=== PATIENT | female | born 1995 | race Caucasian/White ===

== ENCOUNTER 2018-08-16 11:22 | Emergency (ER) | payer SELFPAY ==
[2018-08-16] MEDS ORDERED: IPRATROPIUM/ALBUTEROL 0.5-2.5 MG/3 ML AMPUL NEB ONE (12:48)
[2018-08-16] MEDS ORDERED: DEXAMETHASONE SOD PHOS INJ 10 MG/1 ML VIAL IM ONE (12:48)
--- NOTE | 2018-08-16 12:54 | ER Document Report ---
HPI - HPI Patient complains to provider of: cough and wheezing Pain Level: 3 Context: 22-year-old female presents emergency department with chief complaint of cough and wheezing for the past week. She has been seen here previously and in urgent care a couple times and states she was diagnosed with asthma by an urgent care provider. She had previously been given Symbicort and an albuterol inhaler without a spacer. She presents today with 1 week of worsening cough and congestion. She denies fevers or chills, earache, sore throat, dizziness or lightheadedness, vision changes, rhinorrhea, chest pain, nausea or vomiting, urinary symptoms. - REPRODUCTIVE Reproductive: DENIES: : <REID ALCANTAR - Last Filed: 08/16/18 13:41> <EB WEST - Last Filed: 08/16/18 17:42> - HPI Time Seen by Provider: 08/16/18 12:39 Past Medical History - Social History Smoking Status: Unknown if Ever Smoked Family History: CAD, DM, Hypertension Pulmonary Medical History: Reports: Hx Asthma - Immunizations Immunizations up to date: Yes Hx Diphtheria, Pertussis, Tetanus Vaccination: Yes - September 2013 Hx Pneumococcal Vaccination: 12/09/13 <REID ALCANTAR - Last Filed: 08/16/18 13:41> Vertical Provider Document - CONSTITUTIONAL Notes: PHYSICAL EXAMINATION: Reviewed vital signs and charting by RN GENERAL: Alert, interacts well. No acute distress. HEAD: Normocephalic, atraumatic. EYES: Pupils equal, round. Extraocular movements intact. ENT: Oral mucosa moist, tongue midline. NECK: Full range of motion. Supple. Trachea midline. LUNGS: Diffuse inspiratory and expiratory wheezes in all ha[place]on, witnessed productive cough HEART: Regular rhythm and tachycardic. No murmur ABDOMEN: soft, non-tender. No distention. Bowel sounds present EXTREMITIES: Moves all 4 extremities spontaneously. No edema, No cyanosis. PSYCH: Normal affect, normal mood. SKIN: Warm, dry, normal turgor. No rashes or lesions noted. - INFECTION CONTROL TRAVEL OUTSIDE OF THE [place] IN LAST 30 DAYS: No <REID ALCANTAR - Last Filed: 08/16/18 13:41> Course - Re-evaluation Re-evalutation: 08/16/18 12:53 Well-appearing with diffuse inspiratory and expiratory wheezes. I ordered 2 rounds of DuoNeb and dexamethasone 10 mg IM 1 time. Patient states she has been on Symbicort in the past and I am okay giving her prescription as she states she has asthma. No fevers or any focal crackles but patient is tachycardic so I will order a chest x-ray. 08/16/18 13:41 X-ray negative for any infiltrate, consolidation, pneumothorax or any acute process. Patient responded well to the DuoNeb's. Upon reevaluation had very very mild end expiratory wheezing in the right lower lobe. Patient states she is feeling much better and does not need another breathing treatment. She is stable for discharge at this time. She is mildly tachycardic but this could be secondary to the breathing treatments. - Vital Signs Vital signs: Temp Pulse Resp BP Pulse Ox 98.3 F 108 H 26 H 140/88 H 96 08/16/18 11:35 08/16/18 11:35 08/16/18 11:35 08/16/18 11:35 08/16/18 11:35 <REID ALCANTAR - Last Filed: 08/16/18 13:41> - Vital Signs Vital signs: Temp Pulse Resp BP Pulse Ox 98.4 F 101 H 26 H 123/78 98 08/16/18 13:58 08/16/18 13:58 08/16/18 11:35 08/16/18 13:58 08/16/18 13:58 <EB WEST - Last Filed: 08/16/18 17:42> Discharge <REID ALCANTAR - Last Filed: 08/16/18 13:41> <EB WEST - Last Filed: 08/16/18 17:42> - Discharge Clinical Impression: Wheezing, Cough Condition: Good Disposition: HOME, SELF-CARE Additional Instructions: You were seen for an asthma exacerbation. Your symptoms improved with treatment here in the emergency department. However, it is very important that you return to the emergency department immediately if you began to have worsening difficulty breathing that does not respond to your normal home nebulizers. You are given a steroid shot called dexamethasone and will not require any further treatment. Please also try to establish a primary care physician to manage your asthma. As we talked about I would very comfortable giving you a prescription for the Symbicort but this is something that I cannot keep refilling in the emergency department and will require a primary care provider. you should also return to emergency department if you develop fever greater than 101, persistent cough, persistent vomiting, pass out, or any other symptoms that are concerning to you. Prescriptions: Budesonide/Formoterol Fumarate [Symbicort Hfa 80-4.5 Mcg Inhaler 6.9 gm] 2 puff IH BID #1 inhaler Forms: Return to Work Referrals: SANDEE MAHAN MD [ACTIVE STAFF] - Follow up as needed
--- NOTE | 2018-08-16 13:39 | RADIOLOGY REPORT (SQ) ---
EXAM DESCRIPTION: CHEST 2 VIEWS COMPLETED DATE/TIME: 08/16/2018 1:30 pm REASON FOR STUDY: cough COMPARISON: 08/20/2015 EXAM PARAMETERS: NUMBER OF VIEWS: two views TECHNIQUE: Digital Frontal and Lateral radiographic views of the chest acquired. RADIATION DOSE: NA LIMITATIONS: none FINDINGS: LUNGS AND PLEURA: No opacities, masses or pneumothorax. No pleural effusion. MEDIASTINUM AND HILAR STRUCTURES: No masses or contour abnormalities. HEART AND VASCULAR STRUCTURES: Heart normal size. No evidence for failure. BONES: No acute findings. HARDWARE: None in the chest. OTHER: No other significant finding. IMPRESSION: No acute abnormality of the lungs. TECHNICAL DOCUMENTATION: JOB ID: [id number] [employer]- All Rights Reserved Reading location - IP/workstation name: [email or web address]
[2018-08-16 14:09] VITALS: BP 123/78
== END 2018-08-16 14:03 | disposition home or self-care (01) ==
LOC: ER 11:22
DX: J45.909 Unspecified asthma, uncomplicated (principal); R05 Cough; R00.0 Tachycardia, unspecified
CPT/HCPCS: 94640; 99283; 96372; 71046; J1100; J7620

== ENCOUNTER 2018-10-27 13:16 | Emergency (ER) | payer SELFPAY ==
--- NOTE | 2018-10-27 14:49 | ER Document Report ---
ED Medical Screen (RME) - General Chief Complaint: Vaginal Bleeding Stated Complaint: VAGINAL BLEEDING Time Seen by Provider: 10/27/18 14:37 Notes: Patient is a 22-year-old female with a history of asthma who presents to the emergency department with a chief complaint of vaginal bleeding. Patient states she does have the Mirena which has been in place for 5 years. Patient states last night after having sexual intercourse she did develop some pelvic cramping and vaginal bleeding. Patient states that is not necessarily abnormal for her to have spotting after sex but she is having much more bleeding. Patient states she is gone through 1 full tampon today. Patient denies blood clots. Patient states that the sexual intercourse was painful for her. Patient denies vaginal discharge prior to the bleeding. Patient denies urinary symptoms. TRAVEL OUTSIDE OF THE [place] IN LAST 30 DAYS: No - Related Data Allergies/Adverse Reactions: No Known Allergies Allergy (Verified 08/16/18 11:25) Past Medical History - Social History Frequency of alcohol use: Occasional Drug Abuse: None Pulmonary Medical History: Reports: Hx Asthma Renal/ Medical History: Denies: Hx Peritoneal Dialysis - Immunizations Immunizations up to date: Yes Hx Diphtheria, Pertussis, Tetanus Vaccination: Yes - September 2013 Physical Exam - Vital signs Vitals: Temp Pulse Resp BP Pulse Ox 98.4 F 92 15 128/90 H 99 10/27/18 13:20 10/27/18 13:20 10/27/18 13:20 10/27/18 13:20 10/27/18 13:20 - Abdominal Inspection: Normal Distension: No distension Bowel sounds: Normal Tenderness: Nontender Organomegaly: No organomegaly Course - Re-evaluation Re-evalutation: 10/27/18 14:49 I have greeted and performed a rapid initial assessment of this patient. A comprehensive ED assessment and evaluation of the patient, analysis of test results and completion of the medical decision making process will be conducted by additional ED providers. - Vital Signs Vital signs: Temp Pulse Resp BP Pulse Ox 98.4 F 92 15 128/90 H 99 10/27/18 13:20 10/27/18 13:20 10/27/18 13:20 10/27/18 13:20 10/27/18 13:20
--- NOTE | 2018-10-27 15:11 | ER Document Report ---
HPI - HPI Patient complains to provider of: vaginal bleeding, dyspareunia, lower abdominal pain Time Seen by Provider: 10/27/18 14:37 Onset: Yesterday Onset/Duration: Sudden, Waxing and waning Quality of pain: Achy, Cramping Severity: Mild Pain Level: 1 Context: 22 yr old female patient, with the listed pmh, here for intermittent crampy lower abdominal pain and some light vaginal bleeding since yesterday after intercourse with her boyfriend. denies doing anything out of the ordinary. denies any trauma or injury. states usually she doesn't have a period with he IUD which she has had in for nearly 5yrs and is due to get it out this month and has f/u in a week or two for this. she states when they had vaginal intercourse last night it was painful to her for the first time and felt different and she usually doesn't experience that and then she noticed she was having some mild, not heavy, vaginal bleeding, so she came in for eval to make sure her IUD wasn't dislodged and to further investigate her sx. no hx of this before. denies heavy bleeding, clots, acute blood loss sx, or notably passing the IUD. No abdominal surgeries. No history of ovarian cysts, fibroids, endometriosis, or renal stones. Normal bowel movements. No UTI symptoms. No URI symptoms. No recent antibiotics or steroids. No history of diabetes. No vaginal discharge/complaints/lesions or concerns for STDs and does not want prophylactic tx for gc/chlam. No ripping or tearing sensation. Hasn't taken anything for her symptoms and doesn't want anything for pain. No excessive NSAID use, Tylenol use, or EtOH. No prior history of gallbladder disease, pancreatitis, ulcers, GI bleed, GERD, IBS, Crohn's, or UC. no change in color or caliber or stool. no blood thinners. no hx of bleeding or clotting disorders. denies bleeding from anywhere else. denies any forms of assault. no fall or trauma. no other associated sx. Relieved by: Remaining still Similar symptoms previously: No Recently seen / treated by doctor: No - ROS Systems Reviewed and Negative: Yes All other systems reviewed and negative - to include 10 systems, unless mentioned in the hpi - REPRODUCTIVE Reproductive: DENIES: : - DERM Skin Color: Normal Past Medical History - General Information source: Patient - Social History Smoking Status: Current Every Day Smoker Frequency of alcohol use: Occasional Drug Abuse: None Lives with: Spouse/Significant other Family History: CAD, DM, Hypertension Patient has suicidal ideation: No Patient has homicidal ideation: No Pulmonary Medical History: Reports: Hx Asthma Endocrine Medical History: Reports: None Renal/ Medical History: Denies: Hx Peritoneal Dialysis Past Surgical History: Reports: None - Immunizations Immunizations up to date: Yes Hx Diphtheria, Pertussis, Tetanus Vaccination: Yes - September 2013 Hx Pneumococcal Vaccination: 12/09/13 Vertical Provider Document - CONSTITUTIONAL Notes: >>>> PHYSICAL_EXAM: GENERAL_APPEARANCE: well_nourished, alert, cooperative, no_acute_distress, no_obvious_discomfort. Pleasant, young white female, smiling, speaking in full sentences, in no sign of pain or resp distress, easily sitting up, boyfriend at bedside VITALS: reviewed, see vital signs table. HEAD: normocephalic, atraumatic. no ho signs. no raccoon eyes. EYES: PERRL, EOMI, (-)scleral icterus. NOSE: no_nasal_discharge. MOUTH: (-)decreased moisture. THROAT: no_tonsilar_inflammation/hypertrophy/exudate NECK: supple, no_neck_tenderness, full rom. full strength. no meningeal signs. BACK: no midline_back_tenderness. no step offs or deformities CHEST_WALL: no_chest_tenderness. LUNGS: no_wheezing, (-)accessory muscle use, good air exchange bilateral. HEART: normal_rate, normal_rhythm, ABDOMEN: normal_BS, soft, abdomen-diffuse, non-tender, (-)guarding, (- )rebound, no distension or peritoneal signs. neg murphys. neg mcburneys. no cva tenderness. neg heel strike. neg obturator. neg psoas. neg rovsign. GENITALS: no_ulcers_or_lesions on the genitals, no_lacerations on the genitals, PELVIC: (-)tender uterus, left_and_right adnexa non-tender, (-)CMT, a mild amt of blood in the vault and oozing from the os. no clots. no bright red blood, heavy or pulsatile flow. no IUD visualized in vault; however, there appear to be two strings coming from the os on the left side approx 1.5-2in long which would be consistent with her hx of an IUD, this was best visualized after sterile obgyn cotton swab q-tips were used to gently soak up the blood over the area to allow for better visualization, (-)discharge, no_tenderness, no cervicitis, normal os, pt consented to exam. exam without incident. ed nurse at bedside during entire exam as communicable disease specialist. RECTAL: deferred EXTREMITIES: strength 5/5 in all_extremities, good pulses in all_extremities, no_edema, no_swelling\tenderness. full rom. normal gait. 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 brisk cap refill. SKIN: warm, dry, good_color, no_rash. no grossly visible overlying skin changes to suggest trauma NEURO: motor_intact, sensory_intact. cranial nerves 2-12 intact, cerebellar fxn intact MENTAL_STATUS: normal_affect, speech_clear, oriented_X_3, responds_appropriately to questions. - INFECTION CONTROL TRAVEL OUTSIDE OF THE [place] IN LAST 30 DAYS: No Course - Re-evaluation Re-evalutation: pt here for vaginal spotting/mild bleeding and intermittent lower abd cramping, x 1 day and pain after vaginal intercourse last night. also concern her IUD may be dislodged. labs unremarkable other than bv. gc and chlam pending. she didn't want prophylactic tx. advised will call with any abnormal results that require change in plan of care. advised it appeared both of her IUD strings were protruding through the os on pelvic exam however there was some blood in the vault and coming from the os so exam limited; however her transvag pelvic dop pler US and KUB were negative per rad and reviewed by myself to include no visualization of the IUD. so she may have spontaneously expelled it as it had been in there for around 5yrs and was due to be changed out. advised pt of this and that she needed to make sure she used other forms for control until she f/u with obgyn unless she was trying to get which she states she isn't. serial abd exams remain benign. she is well appearing. tolerating po. denies acute blood loss sx. will dc with flagyl. advised to f/u with obgyn in 1- 2 days. return for any worsening symptoms. vss. well appearing. satting well on ra. neurononfocal. pt understands and agrees to plan. On reexam, pt remained stable. nontoxic. well appearing. pain controlled as she didn't want anything here for pain. tolerating po. requesting to go home. serial abd exams remain benign case discussed with ER Attending, Dr. michelle ma, who directed and agrees with plan of care and advised no further workup indicated at this time and pt is stable for dc home with close f/u with pcp/specialist. Documentation achieved through voice recording which my lead to some occasional accidental typographical errors. Extensive efforts have been made to proof read documentation to make sure these are the least as possible. Category Date Time Status Pelvic Setup (ED) NOW Care 10/27/18 15:08 Completed KUB/ABDOMEN (SINGLE VIEW) [RAD] Stat Exams 10/27/18 18:27 Completed U/S NON OB PEL W/DOPPLER [US] Stat Exams 10/27/18 14:42 Completed ADD ON [ADD ON TESTING BLD IN LAB] [CHEM] Stat Lab 10/27/18 15:02 Completed BASIC METABOLIC PANEL [CHEM] Stat Lab 10/27/18 15:02 Completed CBC WITH DIFF [HEME] Stat Lab 10/27/18 15:02 Completed CHLAM RICH PCR URINE INHOUSE [MO] Stat Lab 10/27/18 15:02 Completed HCG QUALITATIVE, URINE [URIN] Stat Lab 10/27/18 15:02 Completed LIVER FUNCTION PANEL [CHEM] Stat Lab 10/27/18 15:02 Completed URINALYSIS [URIN] Stat Lab 10/27/18 15:02 Completed WET MOUNT [MO] Stat Lab 10/27/18 16:40 Completed - Vital Signs Vital signs: Temp Pulse Resp BP Pulse Ox 98.4 F 92 15 128/90 H 99 10/27/18 13:20 10/27/18 13:20 10/27/18 13:20 10/27/18 13:20 10/27/18 13:20 11/01/18 16:17 Temp Pulse Pulse Resp BP BP Pulse Ox 10/27/18 19:30 98.1 F 85 18 123/83 100 10/27/18 13:20 98.4 F 92 15 128/90 H 99 - Laboratory Result Diagrams: 10/27/18 15:02 10/27/18 15:02 Laboratory results interpreted by me: 11/01/18 16:17 Labs- Entire Visit 10/27/18 10/27/18 10/27/18 15:02 15:02 15:02 WBC 10.4 RBC 4.45 Hgb 13.9 Hct 41.0 MCV 92 MCH 31.2 MCHC 33.9 RDW 13.4 Plt Count 241 Seg Neutrophils % 67.5 Lymphocytes % 25.7 Monocytes % 5.2 Eosinophils % 1.0 Basophils % 0.6 Absolute Neutrophils 7.0 Absolute Lymphocytes 2.7 Absolute Monocytes 0.5 Absolute Eosinophils 0.1 Absolute Basophils 0.1 Sodium 140.9 Potassium 4.6 Chloride 104 Carbon Dioxide 28 Anion Gap 9 BUN 15 Creatinine 0.60 Est GFR ( Amer) > 60 Est GFR (Non-Af Amer) > 60 Glucose 88 Calcium 10.0 Total Bilirubin Direct Bilirubin Neonat Total Bilirubin Neonat Direct Bilirubin Neonat Indirect Bili AST ALT Alkaline Phosphatase Total Protein Albumin Urine Color YELLOW Urine Appearance SLIGHTLY-CLOUDY Urine pH 6.0 Ur Specific [place] 1.018 Urine Protein NEGATIVE Urine Glucose (UA) NEGATIVE Urine Ketones NEGATIVE Urine Blood MODERATE H Urine Nitrite NEGATIVE Urine Bilirubin NEGATIVE Urine Urobilinogen NEGATIVE Ur Leukocyte Esterase NEGATIVE Urine WBC (Auto) 1 Urine RBC (Auto) 3 Squamous Epi Cells Auto 1 Urine Mucus (Auto) RARE Urine Ascorbic Acid NEGATIVE Urine HCG, Qual NEGATIVE Bacteria (Wet Prep) Trichomonas (Wet Prep) Vaginal WBC Vaginal RBC Vaginal Yeast Chlamydia DNA (PCR) N.gonorrhoeae DNA (PCR) 10/27/18 10/27/18 10/27/18 15:02 15:02 16:40 WBC RBC Hgb Hct MCV MCH MCHC RDW Plt Count Seg Neutrophils % Lymphocytes % Monocytes % Eosinophils % Basophils % Absolute Neutrophils Absolute Lymphocytes Absolute Monocytes Absolute Eosinophils Absolute Basophils Sodium Potassium Chloride Carbon Dioxide Anion Gap BUN Creatinine Est GFR ( Amer) Est GFR (Non-Af Amer) Glucose Calcium Total Bilirubin 0.4 Direct Bilirubin 0.1 Neonat Total Bilirubin Not Reportable Neonat Direct Bilirubin Not Reportable Neonat Indirect Bili Not Reportable AST 21 ALT 14 Alkaline Phosphatase 76 Total Protein 7.6 Albumin 4.7 Urine Color Urine Appearance Urine pH Ur Specific [place] Urine Protein Urine Glucose (UA) Urine Ketones Urine Blood Urine Nitrite Urine Bilirubin Urine Urobilinogen Ur Leukocyte Esterase Urine WBC (Auto) Urine RBC (Auto) Squamous Epi Cells Auto Urine Mucus (Auto) Urine Ascorbic Acid Urine HCG, Qual Bacteria (Wet Prep) 4+ BACTERIA SEEN Trichomonas (Wet Prep) NO TRICHOMONAS SEEN Vaginal WBC 1+ WBCS SEEN Vaginal RBC 4+ RBCS SEEN Vaginal Yeast NO YEAST SEEN Chlamydia DNA (PCR) NOT DETECTED N.gonorrhoeae DNA (PCR) NOT DETECTED - Diagnostic Test Radiology reviewed: Image reviewed, Reports reviewed Radiology results interpreted by me: 11/01/18 16:18 Pelvis Ultrasound 10/27/18 14:42 IMPRESSION: Age-appropriate exam. No IUD identified. KUB X-Ray 10/27/18 18:27 IMPRESSION: NO RADIOGRAPHIC EVIDENCE FOR ACUTE ABDOMINAL DISEASE. No IUD identified. Discharge - Discharge Clinical Impression: Dysfunctional uterine bleeding, Dyspareunia, History of use of contraceptive intrauterine device (IUD), Bacterial vaginosis Condition: Good Disposition: HOME, SELF-CARE Instructions: Dysfunctional Uterine Bleeding ([facility]) Additional Instructions: Follow-up with the obgyn in 1 to 2 days. Return for any worsening symptoms. your IUD was not visualized on your abdominal xray or transvaginal ultrasound today or in the vaginal vault on pelvic exam. you need to use other methods of control as discussed. tylenol or motrin as needed for any pain. take the medication as prescribed. Prescriptions: Metronidazole [Flagyl 500 mg Tablet] 500 mg PO BID #14 tablet Referrals: MEKHI WHALEY MD [ACTIVE STAFF] - Follow up in 3-5 days
[2018-10-27 15:24] LABS: APPEARANCE,URINE SLIGHTLY-CLOUDY; BILIRUBIN,URINE NEGATIVE (NEGATIVE); COLOR,URINE YELLOW; GLUCOSE, URINE NEGATIVE (NEGATIVE); KETONES,URINE NEGATIVE (NEGATIVE); LEUKOCYTE ESTERASE,URINE NEGATIVE (NEGATIVE); NITRITE,URINE NEGATIVE (NEGATIVE); PROTEIN,URINE NEGATIVE (NEGATIVE); URINE SPECIFIC GRAVITY 1.018; UROBILINOGEN,URINE NEGATIVE mg/dL (<2.0)
[2018-10-27 15:25] LABS: ABSOLUTE BASOPHILS # (AUTO) 0.1 10^3/uL (0.0-0.2); ABSOLUTE EOSINOPHILS # (AUTO) 0.1 10^3/uL (0.0-0.6); ABSOLUTE LYMPHOCYTES (AUTO) 2.7 10^3/uL (0.5-4.7); ABSOLUTE MONOCYTES (AUTO) 0.5 10^3/uL (0.1-1.4); BASOPHILS % (AUTO) 0.6 % (0-2); HEMOGLOBIN 13.9 g/dL (12.0-15.5); LYMPHOCYTES % (AUTO) 25.7 % (13-45); MEAN CORPUSCULAR HEMOGLOBIN 31.2 pg (27.0-33.4); MEAN CORPUSCULAR HGB CONC 33.9 g/dL (32.0-36.0); MEAN CORPUSCULAR VOLUME 92 fl (80-97); MONOCYTES % (AUTO) 5.2 % (3-13); PLATELET COUNT 241 10^3/uL (150-450); RED BLOOD COUNT 4.45 10^6/uL (3.72-5.28); RED CELL DISTRIBUTION WIDTH 13.4 % (11.5-14.0); SEGMENTED NEUTROPHILS % (AUTO) 67.5 % (42-78); TOTAL CELLS COUNTED % (AUTO) 100 %; WHITE BLOOD COUNT 10.4 10^3/uL (4.0-10.5)
[2018-10-27 15:35] LABS: ALBUMIN 4.7 g/dL (3.5-5.0); ALKALINE PHOSPHATASE 76 U/L (38-126); ANION GAP 9 (5-19); ASPARTATE AMINO TRANSFERASE 21 U/L (14-36); BILIRUBIN,DIRECT 0.1 mg/dL (0.0-0.4); BILIRUBIN,TOTAL 0.4 mg/dL (0.2-1.3); BLOOD UREA NITROGEN 15 mg/dL (7-20); CARBON DIOXIDE 28 mmol/L (22-30); CHLORIDE 104 mmol/L (98-107); GLUCOSE 88 mg/dL (75-110); POTASSIUM 4.6 mmol/L (3.6-5.0); TOTAL PROTEIN 7.6 g/dL (6.3-8.2)
[2018-10-27 16:57] LABS: BACTERIA (WET MOUNT) 4+ BACTERIA SEEN; RBCS (WET MOUNT) 4+ RBCS SEEN; T.VAGINALIS (WET MOUNT) NO TRICHOMONAS SEEN; WBCS (WET MOUNT) 1+ WBCS SEEN; YEAST (WET MOUNT) NO YEAST SEEN
--- NOTE | 2018-10-27 18:05 | RADIOLOGY REPORT (SQ) ---
EXAM DESCRIPTION: U/S NON OB PEL W/DOPPLER COMPLETED DATE/TIME: 10/27/2018 5:39 pm REASON FOR STUDY: vaginal bleeding, hx. mirena, pelvic cramping COMPARISON: None. TECHNIQUE: Dynamic and static grayscale images acquired of the pelvis via transabdominal approach an d recorded on PACS. Additional selected color Doppler and spectral images recorded. LIMITATIONS: None. FINDINGS: UTERUS: Contour normal. No mass. ENDOMETRIAL STRIPE: No focal or generalized thickening. No masses. CERVIX: No nabothian cysts. RIGHT OVARY AND DOPPLER: Normal size. No worrisome masses. Normal arterial vascular flow without evid ence for torsion. LEFT OVARY AND DOPPLER: Normal size. No worrisome masses. Normal arterial vascular flow without evide nce for torsion. FREE FLUID: None noted. OTHER: No other significant finding. MEASUREMENTS: UTERUS: 5.8 x 3.9 x 3.8 cm ENDOMETRIAL STRIPE: 3 mm RIGHT OVARY: 3.4 x 2.3 x 2.2 cm LEFT OVARY: 1.9 x 2.2 x 1.7 cm IMPRESSION: Age-appropriate exam. No IUD identified. TECHNICAL DOCUMENTATION: JOB ID: [id number] 2010 [employer]- All Rights Reserved Reading location - IP/workstation name: [email or web address]
[2018-10-27 18:21] LABS: CHLAM PCR NOT DETECTED (NOT DETECT)
--- NOTE | 2018-10-27 18:55 | RADIOLOGY REPORT (SQ) ---
EXAM DESCRIPTION: KUB/ABDOMEN (SINGLE VIEW) COMPLETED DATE/TIME: 10/27/2018 6:43 pm REASON FOR STUDY: IUD not visualized on US COMPARISON: None. NUMBER OF VIEWS: One view. TECHNIQUE: Supine radiographic image of the abdomen acquired. LIMITATIONS: None. FINDINGS: BOWEL GAS PATTERN: Non-obstructive bowel gas pattern. No dilated loops. CALCIFICATIONS: No suspicious calcifications. SOFT TISSUES: No gross mass or suggestion of organomegaly. HARDWARE: None in the abdomen. BONES: No acute fracture. No worrisome bone lesions. OTHER: No other significant finding. IMPRESSION: NO RADIOGRAPHIC EVIDENCE FOR ACUTE ABDOMINAL DISEASE. No IUD identified. TECHNICAL DOCUMENTATION: JOB ID: [id number] 2010 [employer]- All Rights Reserved Reading location - IP/workstation name: [email or web address]
[2018-10-27 19:39] VITALS: BP 123/83
== END 2018-10-27 19:39 | disposition home or self-care (01) ==
LOC: ER 13:16
DX: N76.0 Acute vaginitis (principal); B96.89 Other specified bacterial agents as the cause of diseases classified elsewhere; N93.8 Other specified abnormal uterine and vaginal bleeding; N94.10 Unspecified dyspareunia; R10.30 Lower abdominal pain, unspecified; F17.200 Nicotine dependence, unspecified, uncomplicated; J45.909 Unspecified asthma, uncomplicated
CPT/HCPCS: 36415; 74018; 76856; 80048; 80076; 81001; 81025; 85025; 87210; 87491; 87591; 93976; 99284

== ENCOUNTER 2019-02-26 10:13 | Emergency (ER) | payer SELFPAY ==
[2019-02-26] MEDS ORDERED: IPRATROPIUM/ALBUTEROL 0.5-2.5 MG/3 ML AMPUL NEB ONE (10:53)
--- NOTE | 2019-02-26 10:54 | ER Document Report ---
HPI - HPI Time Seen by Provider: 02/26/19 10:50 Pain Level: 4 Notes: 23-year-old female patient with history of asthma pneumonia presenting with cough x1 month. Patient is also a months . Patient reports productive cough that is keeping her up at night. She reports some nasal congestion as well but denies sore throat, fevers or chills. - REPRODUCTIVE LMP: Dec 29, 2018 Reproductive: REPORTS: : Past Medical History - General Information source: Patient - Social History Smoking Status: Never Smoker Chew tobacco use (# tins/day): No Frequency of alcohol use: None Drug Abuse: None Family History: CAD, DM, Hypertension Patient has suicidal ideation: No Patient has homicidal ideation: No Pulmonary Medical History: Reports: Hx Asthma Renal/ Medical History: Denies: Hx Peritoneal Dialysis - Immunizations Immunizations up to date: Yes Hx Diphtheria, Pertussis, Tetanus Vaccination: Yes - September 2013 Hx Pneumococcal Vaccination: 12/09/13 Vertical Provider Document - CONSTITUTIONAL Notes: PHYSICAL EXAMINATION: GENERAL: Well-appearing, well-nourished and in no acute distress. HEAD: Atraumatic, normocephalic. EYES: Pupils equal round extraocular movements intact, conjunctiva are normal. ENT: Nares patent with clear rhinorrhea, oropharynx mildly erythematous but without exudates or tonsillar swelling. NECK: Normal range of motion, no cervical lymphadenopathy. LUNGS: No respiratory distress, lung sounds clear and equal bilaterally. Musculoskeletal: Normal range of motion NEUROLOGICAL: Normal speech, normal gait. PSYCH: Normal mood, normal affect. SKIN: Warm, Dry, normal turgor, no rashes or lesions noted. - INFECTION CONTROL TRAVEL OUTSIDE OF THE [place] IN LAST 30 DAYS: No Course - Re-evaluation Re-evalutation: Chest X-Ray 02/26/19 10:53 IMPRESSION: No focal consolidation or other evidence of acute cardiopulmonary process. Chest x-ray negative, will treat patient conservatively for viral upper respiratory infection. Patient agreeable to this plan. ED return precautions discussed. The patient's emergency department workup and current diagnosis were explained to the patient and or family. Follow-up instructions were provided. Medications if prescribed were discussed. Instructions for when to return to the emergency department including specific worrisome symptoms were discussed with the patient and/or family. - Vital Signs Vital signs: Temp Pulse Resp BP Pulse Ox 99.4 F 86 20 116/68 97 02/26/19 10:50 02/26/19 10:50 02/26/19 10:50 02/26/19 10:50 02/26/19 10:50 Discharge - Discharge Clinical Impression: Upper respiratory infection Qualifiers: URI type: unspecified viral URI Qualified Code(s): J06.9 - Acute upper respiratory infection, unspecified Condition: Stable Disposition: HOME, SELF-CARE Additional Instructions: The chest x-ray that we did today was negative which means you do not have any pneumonia. You do have an upper respiratory infection. Unfortunately there are not many medications he can safely take during . I would purchase [id number] guaifenesin and wviq-nwg-wxbautz acetaminophen. Take the antibiotic that I have prescribed. If this is viral the antibiotic will not not help but you have been having the cough for greater than 30 days so I think it is worth a try. Follow-up with [facility]. Prescriptions: Albuterol Sulfate [Albuterol Sulfate Hfa] 8.5 gm IH Q4H #1 [email or web address] Amoxicillin 1 tab PO TID #30 tab Forms: Return to Work
--- NOTE | 2019-02-26 12:13 | RADIOLOGY REPORT (SQ) ---
EXAM DESCRIPTION: CHEST 2 VIEWS COMPLETED DATE/TIME: 02/26/2019 12:00 pm REASON FOR STUDY: cough x1 month, hx of oneumonia COMPARISON: 08/16/2018 EXAM PARAMETERS: NUMBER OF VIEWS: two views TECHNIQUE: Digital Frontal and Lateral radiographic views of the chest acquired. RADIATION DOSE: NA LIMITATIONS: none FINDINGS: LUNGS AND PLEURA: No opacities, masses or pneumothorax. No pleural effusion. MEDIASTINUM AND HILAR STRUCTURES: No masses or contour abnormalities. HEART AND VASCULAR STRUCTURES: Heart normal size. No evidence for failure. BONES: No acute findings. HARDWARE: None in the chest. OTHER: No other significant finding. IMPRESSION: No focal consolidation or other evidence of acute cardiopulmonary process. TECHNICAL DOCUMENTATION: JOB ID: [id number] [employer]- All Rights Reserved Reading location - IP/workstation name: [email or web address]
[2019-02-26 12:45] VITALS: BP 98/64
== END 2019-02-26 12:49 | disposition home or self-care (01) ==
LOC: ER 10:13
DX: O99.511 Diseases of the respiratory system complicating pregnancy, first trimester (principal); J06.9 Acute upper respiratory infection, unspecified; B97.89 Other viral agents as the cause of diseases classified elsewhere; J45.909 Unspecified asthma, uncomplicated; J34.89 Other specified disorders of nose and nasal sinuses; O26.891 Other specified pregnancy related conditions, first trimester; R05 Cough; Z3A.08 8 weeks gestation of pregnancy
CPT/HCPCS: 94640; 99283; 71046; J7620

== ENCOUNTER 2019-10-14 22:04 | Inpatient (IN) | payer MEDICAID ==
[2019-10-14] MEDS ORDERED: RINGERS SOLUTION,LACTATED 1,000 ML IV ONE (23:08)
[2019-10-14] MEDS ORDERED: RINGERS SOLUTION,LACTATED 1,000 ML IV PRN (23:08)
[2019-10-14] MEDS ORDERED: OXYTOCIN 10 UNIT/ML VIAL ONE (23:09)
[2019-10-14] MEDS ORDERED: OXYTOCIN/0.9 % SODIUM CHLORIDE 30 UNIT/500 ML RTUINJ ONE (23:10)
[2019-10-14] MEDS ORDERED: MISOPROSTOL 0.2 MG TABLET ONE (23:10)
[2019-10-14] MEDS ORDERED: LIDOCAINE 1% INJ-PF (10 MG/ML) 30 ML SDV ONE (23:10)
[2019-10-14 23:16] LABS: APPEARANCE,URINE SLIGHTLY-CLOUDY; BILIRUBIN,URINE NEGATIVE (NEGATIVE); COLOR,URINE YELLOW; GLUCOSE, URINE NEGATIVE (NEGATIVE); KETONES,URINE NEGATIVE (NEGATIVE); LEUKOCYTE ESTERASE,URINE TRACE (NEGATIVE); NITRITE,URINE NEGATIVE (NEGATIVE); PROTEIN,URINE 30 mg/dL (NEGATIVE); URINE SPECIFIC GRAVITY 1.027
[2019-10-14 23:40] LABS: URINE AMPHETAMINES SCREEN NEGATIVE; URINE BARBITURATES SCREEN NEGATIVE; URINE BENZODIAZEPINES SCREEN NEGATIVE; URINE COCAINE SCREEN NEGATIVE; URINE MARIJUANA (THC) SCREEN NEGATIVE; URINE METHADONE SCREEN NEGATIVE; URINE PHENCYCLIDINE SCREEN NEGATIVE
[2019-10-14] MEDS ORDERED: ROPIVACAINE HCL 0.2% INJ/PF (2 MG/ML) 20 ML SDV ONE (23:49)
[2019-10-14] MEDS ORDERED: EPHEDRINE SULFATE INJ 50 MG/1 ML AMPULE ONE (23:49)
[2019-10-14] MEDS ORDERED: FENTANYL/BUPIVACAINE/NS/PF 300 MCG/150 ML RTUINJ EPI ONE (23:49)
[2019-10-14 23:59] LABS: HEMATOCRIT 37.8 % (36.0-47.0); HEMOGLOBIN 13.1 g/dL (12.0-15.5); MEAN CORPUSCULAR HEMOGLOBIN 31.2 pg (27.0-33.4); MEAN CORPUSCULAR HGB CONC 34.5 g/dL (32.0-36.0); MEAN CORPUSCULAR VOLUME 90 fl (80-97); PLATELET COUNT 225 10^3/uL (150-450); RED BLOOD COUNT 4.18 10^6/uL (3.72-5.28); WHITE BLOOD COUNT 22.1 10^3/uL (4.0-10.5)
[2019-10-15 00:11] LABS: ABSOLUTE LYMPHOCYTES# (MANUAL) 2.2 10^3/uL (0.5-4.7); ABSOLUTE MONOCYTES # (MANUAL) 1.3 10^3/uL (0.1-1.4); BASOPHILS % (MANUAL) 0 % (0-2); EOSINOPHILS % (MANUAL) 1 % (0-6); LYMPHOCYTES % (MANUAL) 10 % (13-45); MONOCYTES % (MANUAL) 6 % (3-13); SEGMENTED NEUTROPHILS % (MAN) 83 % (42-78); TOTAL CELLS COUNTED 100
[2019-10-15 00:12] LABS: ANISOCYTOSIS SLIGHT; OVALOCYTES SLIGHT; PLATELET COMMENT ADEQUATE; POIKILOCYTOSIS SLIGHT; TOXIC GRANULATION 1+
--- NOTE | 2019-10-15 01:03 | Admission Physical ---
Datetime Report Generated by CPN: 10/15/2019 01:03 CURRENT ADMISSION Chief Complaint: Uterine Contractions Admit Impression : Term, Intrauterine ; Active Labor Admit Plan: Admit to Unit; Initiate Labor Protocol ALLERGIES Medication Allergies: No Known Allergies (10/14/2019) Food Allergies: Peanuts OBSTETRICAL HISTORY EDC: 10/12/2019 00:00 : 2 Para: 1 Gestational Diabetes: No Rh Sensitization: No Incompetent Cervix: No GAMALIEL: No Infertility: No Uterine Anomaly: No IUGR: No Hx Previous C/S: No Macrosomia: No Hx Loss/Stillborn: No PIH: No Hx : No Placenta Previa/Abruption: No Depression/PP Depression: Yes PTL/PROM: No Post Hemorrhage: No PHYSICAL EXAM General: Normal HEENT: Normal Neurologic: Normal Thyroid: Normal Heart: Normal Lungs: Normal Breast: Normal Back: Normal Abdomen: Normal Genitourinary Exam: Normal Extremities: Normal DTRs: Normal Pelvic Type: Adequate Vital Signs: Reviewed VAGINAL EXAM Dilatation: 3 Effacement: 100 Station: -1 Contraction Comments: regular contractions MEMBRANES Pooling: Positive Membranes: Ruptured Amniotic Fluid Color: Clear FETUS A EGA: 40.3 Monitoring: External US FHR- Baseline: 125 Variability: Moderate 6-25bpm Accelerations: 15X15 Decelerations: None FHR Category: Category I Presentation: Vertex Admit Comment: at 40.3 wks EGA who presented in active labor, SROM while in OB triage, clear -Admit to LDR -NPO and IVFs: LR one liter bolus followed by 125cc/hr continuously -CEFM and toco -GBS negative -Hx of one prior , anticipate -desires Epidural for pain management PLANS FOR LABOR AND DELIVERY Pain Management: Medications; Epidural INFORMED CONSENT Informed Consent Obtained: Vaginal Delivery; Section Delivery; Vacuum/Forceps Assist; Risks, Benefits and Alternatives Discussed Signature: with User ID: [email or web address] : with User ID: [email or web address]
[2019-10-15] MEDS ORDERED: ZOLPIDEM TARTRATE 5 MG TABLET PO PRN (01:47)
[2019-10-15] MEDS ORDERED: MAGNESIUM HYDROXIDE SUSP 30 ML UDCUP PO PRN (01:47)
[2019-10-15] MEDS ORDERED: DIPHENHYDRAMINE HCL 25 MG CAPSULE PO PRN (01:47)
[2019-10-15] MEDS ORDERED: ACETAMINOPHEN 650 MG SUPP.RECT PR PRN (01:47)
[2019-10-15] MEDS ORDERED: DIPH/PERTUSS(ACELL)/TETANUS VAC/PF 0.5 ML SYR (>=10YO) IM PRN (01:47)
[2019-10-15] MEDS ORDERED: OXYTOCIN/0.9 % SODIUM CHLORIDE 30 UNIT/500 ML RTUINJ IV PRN (01:47)
[2019-10-15] MEDS ORDERED: MEASLES,MUMPS&RUBELLA VACC/PF 0.5 ML VIAL SUBCUT PRN (01:47)
[2019-10-15] MEDS ORDERED: PROMETHAZINE HCL 25 MG SUPP.RECT PR PRN (01:47)
[2019-10-15] MEDS ORDERED: PROMETHAZINE HCL INJ 25 MG/1 ML VIAL IV PRN (01:47)
[2019-10-15] MEDS ORDERED: BENZOCAINE/MENTHOL AEROSOL SPRAY 56 ML TOP PRN (01:47)
[2019-10-15] MEDS ORDERED: DIBUCAINE 1% OINTMENT 28 GM TP PRN (01:47)
[2019-10-15] MEDS ORDERED: ACETAMINOPHEN WITH CODEINE #3 TABLET PO PRN (01:47)
[2019-10-15] MEDS ORDERED: PSEUDOEPHEDRINE HCL 30 MG TABLET PO PRN (01:47)
[2019-10-15] MEDS ORDERED: NA PHOS,M-B/NA PHOS,DI-BA (ADULT) 133 ML ENEMA PR PRN (01:47)
[2019-10-15] MEDS ORDERED: PROMETHAZINE HCL 25 MG TABLET PO PRN (01:47)
[2019-10-15] MEDS ORDERED: GLYCERIN/WITCH HAZEL LEAF 1 EACH MED..WIPE TP PRN (01:47)
[2019-10-15] MEDS ORDERED: IBUPROFEN 800 MG TABLET PO SCH ×2 (02:00)
--- NOTE | 2019-10-15 03:37 | Delivery Summary ---
Del Sum A-C Datetime Report Generated by CPN: 10/15/2019 03:37 DELIVERY PERSONNEL DELIVERY PERSONNEL: [id number] Delivery Doctor:: Lala Flynn MD Labor and Delivery Nurse:: Isaura Interiano RN Silo Painter:: Bre Mcleod RN Nursery Nurse:: Marianne Jhaveri RN MSN Corn Lab Technician/NATURAL RESOURCES MANAGER: Jess Solis, ST MATERNAL INFORMATION Delivery Anesthesia: Epidural Medications After Delivery: Pitocin 30 Units in 500ml NS/D5W Estimated Blood Loss (ml): 200 Maternal Complications: None Provider Comments: Called to patients room as she was feeling urge to push and completely dilated. She pushed for approximately 10 minutes and delivered a viable male . Prior to delivery, decelerations of heart rate noted and position changes, Oxygen and fluids were given. Large amount of meconium stained fluid noted after delivery of the head. Shoulders and rest of the body followed easily. Nose and mouth suctioned. IOnfant vigorous. Cord clamping done and infant placed skin to skin with mother. Nursery in attendance and they continued caring for . Both mother and infant stable. LABOR SUMMARY EDC: 10/12/2019 00:00 No. Babies in Womb: 1 Attempted: No Labor Anesthesia: Epidural LABOR INFORMATION Reason for Induction: Not Applicable Onset of Labor: 10/14/2019 23:00 Complete Dilatation: 10/15/2019 01:13 Oxytocin: N/A Group B Beta Strep: neg Steroids Given: None Reason Steroids Not Administered: Not Applicable MEMBRANES Membranes Rupture Method: Spontaneous Rupture of Membranes: 10/14/2019 23:00 Length of Rupture (hr): 2.53 Amniotic Fluid Color: Moderate Meconium Amniotic Fluid Amount: Large STAGES OF LABOR Stage 1 hr: 2 Stage 1 min: 13 Stage 2 hr: 0 Stage 2 min: 19 Stage 3 hr: 0 Stage 3 min: 7 Total Time in Labor hr: 2 Total Time in Labor min: 39 VAGINAL DELIVERY Episiotomy: None Other Laceration: Bilateral labial lacerations: repeaired with 3-0 chromic running Laceration Repair: Yes Laceration Repair Note: wtih 3-0 chromic, running Sponge Count Correct: Yes; Vaginal Sweep Performed Sharps Count Correct: Yes CSECTION DELIVERY Primary Indication: N/A Secondary Indication: N/A CSection Incidence: N/A Labor: N/A Elective: N/A CSection Incision: N/A Uterine Closure: N/A BABY A INFORMATION Delivery Date/Time: 10/15/2019 01:32 Method of Delivery: Vaginal Nurse Controlled Delivery: No Born in Route : No : N/A Forceps: N/A Vacuum Extraction: N/A Shoulder Dystocia : No PRESENTATION/POSITION BABY A Presentation: Cephalic Cephalic Presentation: Vertex Vertex Position: Right Occipital Anterior PLACENTA INFORMATION BABY A Placenta Delivery Time : 10/15/2019 01:39 Placenta Method of Delivery: Spontaneous Placenta Status: Delivered SCORES BABY A Heart Rate 1 min: >100 bpm Resp Effort 1 min: Good Cry Reflex Irritability 1 min: Cough or Sneeze or Pulls Away Muscle Tone 1 min: Active Motion Color 1 min: Blue/Pale Resuscitation Effort 1 min: Tactile Stimulation SCORE 1 MIN: 8 Heart Rate 5 min: >100 bpm Resp Effort 5 min: Good Cry Reflex Irritability 5 min: Cough or Sneeze or Pulls Away Muscle Tone 5 min: Active Motion Color 5 min: Body [place], Extremities Blue Resuscitation Effort 5 min: Tactile Stimulation SCORE 5 MIN: 9 INFORMATION BABY A Gestational Age at Delivery: 40.3 Gestational Status: Full Term- 39- 40.6 Weeks Outcome : Liveborn Condition : Stable Sex: Male IDENTIFICATION BABY A Verification Date/Time: 10/15/2019 02:20 ID Band Number: [id number] Mother's Name Verified: Yes RN Verifying : S. Mcleod RN E. Loslek RN WEIGHT/LENGTH BABY A Birthweight (gm): 3277 Weight (lb): 7 Weight (oz): 4 Infant Length (in): 20.00 Infant Length (cm): 50.80 CORD INFORMATION BABY A No. Cord Vessels: 3 Nuchal Cord : N/A Cord Blood Taken: Yes-For Eval (Mom's Blood Type - or O+) Infant Suction: Mouth; Nose ASSESSMENT BABY A Infant Complications: None Physical Findings at Delivery: Within Normal Limits Respirations: Appears Normal Skin to Skin: Yes Transferred To: Remains with Mother SIGNATURES Signature: with User ID: [email or web address] : with User ID: [email or web address]
[2019-10-15] MEDS: IBUPROFEN 800 MG TABLET PO SCH ×3 (05:59→22:18)
[2019-10-15] MEDS: SENNOSIDES/DOCUSATE 8.6-50 MG 1 EACH TABLET PO SCH (09:20)
[2019-10-15] MEDS: PRENATAL VITAMIN W DHA CAPSULE PO SCH (09:20)
[2019-10-15] MEDS: DOCUSATE SODIUM 100 MG CAPSULE PO SCH ×2 (09:20→18:13)
[2019-10-15] MEDS: FERROUS SULFATE 325 MG TABLET PO SCH ×2 (09:20→18:14)
[2019-10-15] MEDS: VALACYCLOVIR HCL 500 MG TABLET PO SCH (09:20)
[2019-10-15] MEDS: ACETAMINOPHEN WITH CODEINE #3 TABLET PO PRN (09:25)
[2019-10-15] MEDS: FAMOTIDINE 20 MG TABLET PO SCH (09:26)
--- NOTE | 2019-10-15 16:28 | PDOC PROGRESS REPORT ---
Subjective-OB Progress Note for:: 10/15/19 Subjective: 23yo G1 now P1 s/p delivery day. Ambulating and voiding without difficulty. Reports pain well controlled by medication, denies any concerns today just tired Physical Exam (OB) Vital Signs: Temp Pulse Resp BP Pulse Ox 98.3 F 75 16 124/73 100 10/15/19 08:06 10/15/19 08:06 10/15/19 08:06 10/15/19 08:06 10/15/19 08:06 Intake & Output 10/14/19 10/15/19 10/16/19 06:59 06:59 06:59 Intake Total 600 Output Total 300 Balance -300 600 Weight 74.9 kg - General General Appearance: Appears well In distress: None - PIH/Pre-Eclampsia DTR's: 1 + Clonus: Negative Headache: Absent Epigastric Pain: No Visual Changes: No - Episiotomy/Laceration Site Condition: Well Approximated - Lochia Lochia Amount: Small 10-25 ml Lochia Color: Rubra/Red - Abdomen Description: Soft, Round Fundal Description: Firm, Midline Fundal Height: u/u - u/2 - Respiratory Respiratory Status: No respiratory distress - Extremities Upper extremity: Normal inspection Lower extremities: Normal inspection Objective-Diagnostic Laboratory: 10/14/19 23:23 10/14/19 10/14/19 10/14/19 22:13 23:23 23:23 WBC 22.1 H RBC 4.18 Hgb 13.1 Hct 37.8 MCV 90 MCH 31.2 MCHC 34.5 RDW 14.0 Plt Count 225 Seg Neutrophils % Not Reportable Urine Color YELLOW Urine Appearance SLIGHTLY-CLOUDY Urine pH 6.0 Ur Specific [place] 1.027 Urine Protein 30 H Urine Glucose (UA) NEGATIVE Urine Ketones NEGATIVE Urine Blood NEGATIVE Urine Nitrite NEGATIVE Ur Leukocyte Esterase TRACE H Blood Type B POSITIVE Antibody Screen NEGATIVE Assessment and Plan(PN) - Assessment and Plan (1) Vaginal delivery Is this a current diagnosis for this admission?: Yes Plan: routine pp care - Time Spent with Patient Time with patient: Less than 15 minutes Medications reviewed and adjusted accordingly: Yes - Disposition Anticipated Discharge Disposition: Home, Self Care Anticipated Discharge Timeframe: within 48 hours
[2019-10-16] MEDS: FAMOTIDINE 20 MG TABLET PO SCH ×2 (04:19→10:31)
[2019-10-16 07:21] LABS: HEMATOCRIT 33.2 % (36.0-47.0); HEMOGLOBIN 11.4 g/dL (12.0-15.5); MEAN CORPUSCULAR HEMOGLOBIN 31.6 pg (27.0-33.4); MEAN CORPUSCULAR HGB CONC 34.2 g/dL (32.0-36.0); MEAN CORPUSCULAR VOLUME 92 fl (80-97); PLATELET COUNT 192 10^3/uL (150-450); RED BLOOD COUNT 3.59 10^6/uL (3.72-5.28); RED CELL DISTRIBUTION WIDTH 14.6 % (11.5-14.0)
[2019-10-16] MEDS: IBUPROFEN 800 MG TABLET PO SCH ×3 (07:23→22:59)
[2019-10-16] MEDS ORDERED: MEASLES,MUMPS&RUBELLA VACC/PF 0.5 ML VIAL SUBCUT PRN (10:00)
[2019-10-16] MEDS ORDERED: DIPH/PERTUSS(ACELL)/TETANUS VAC/PF 0.5 ML SYR (>=10YO) IM PRN (10:00)
[2019-10-16] MEDS ORDERED: PROMETHAZINE HCL INJ 25 MG/1 ML VIAL IV PRN (10:00)
[2019-10-16] MEDS: DOCUSATE SODIUM 100 MG CAPSULE PO SCH ×2 (10:10→17:10)
[2019-10-16] MEDS: PRENATAL VITAMIN W DHA CAPSULE PO SCH (10:10)
[2019-10-16] MEDS: FERROUS SULFATE 325 MG TABLET PO SCH ×2 (10:10→17:10)
[2019-10-16] MEDS: SENNOSIDES/DOCUSATE 8.6-50 MG 1 EACH TABLET PO SCH (10:10)
[2019-10-16] MEDS: VALACYCLOVIR HCL 500 MG TABLET PO SCH (10:10)
--- NOTE | 2019-10-16 12:23 | PDOC PROGRESS REPORT ---
Subjective-OB Progress Note for:: 10/16/19 Subjective: Doing well, no c/o, breast and bottle feeding, voiding Physical Exam (OB) Vital Signs: Temp Pulse Resp BP Pulse Ox 97.6 F 68 18 98/62 L 97 10/16/19 07:16 10/16/19 07:16 10/16/19 07:16 10/16/19 07:16 10/16/19 07:16 Intake & Output 10/15/19 10/16/19 10/17/19 06:59 06:59 06:59 Intake Total 1000 Output Total 300 Balance -300 1000 Weight 74.9 kg - PIH/Pre-Eclampsia DTR's: 1 + Clonus: Negative Headache: Absent Epigastric Pain: No Visual Changes: No - Lochia Lochia Amount: Small 10-25 ml Lochia Color: Rubra/Red - Abdomen Description: Soft, Round Hernia Present: No Fundal Description: Firm, Midline Fundal Height: u/u - u/2 Objective-Diagnostic Laboratory: 10/16/19 07:10 10/16/19 07:10 WBC 16.0 H RBC 3.59 L Hgb 11.4 L Hct 33.2 L MCV 92 MCH 31.6 MCHC 34.2 RDW 14.6 H Plt Count 192 Assessment and Plan(PN) - Assessment and Plan (1) Vaginal delivery Is this a current diagnosis for this admission?: Yes - Time Spent with Patient Time with patient: Less than 15 minutes Medications reviewed and adjusted accordingly: Yes - Disposition Anticipated Discharge Disposition: Home, Self Care Anticipated Discharge Timeframe: within 24 hours
[2019-10-16] MEDS: ACETAMINOPHEN WITH CODEINE #3 TABLET PO PRN (13:09)
[2019-10-16] MEDS ORDERED: PHENAZOPYRIDINE HCL 200 MG TABLET PO ONE (23:30)
[2019-10-17] MEDS: ACETAMINOPHEN WITH CODEINE #3 TABLET PO PRN (00:05)
[2019-10-17] MEDS: FAMOTIDINE 20 MG TABLET PO SCH (00:10)
[2019-10-17] MEDS ORDERED: PHENAZOPYRIDINE HCL 200 MG TABLET ONE (00:24)
[2019-10-17] MEDS: IBUPROFEN 800 MG TABLET PO SCH (05:21)
[2019-10-17 08:47] VITALS: BP 100/69
[2019-10-17 09:35] LABS: HSV-I IGG AB 4.22 index (0.00-0.90)
[2019-10-17] MEDS ORDERED: PHENAZOPYRIDINE HCL 200 MG TABLET PO SCH (10:00)
[2019-10-17] MEDS: PRENATAL VITAMIN W DHA CAPSULE PO SCH (10:30)
[2019-10-17] MEDS: SENNOSIDES/DOCUSATE 8.6-50 MG 1 EACH TABLET PO SCH (10:30)
[2019-10-17] MEDS: DOCUSATE SODIUM 100 MG CAPSULE PO SCH (10:30)
[2019-10-17] MEDS: VALACYCLOVIR HCL 500 MG TABLET PO SCH (10:30)
[2019-10-17] MEDS: FERROUS SULFATE 325 MG TABLET PO SCH (10:30)
--- NOTE | 2019-10-17 11:05 | PDOC DISCHARGE SUMMARY ---
Impression - Admit/DC Date/PCP Admission Date/Primary Care Provider: 10/14/19 23:06 Discharge Date: 10/17/19 - PP Day #2, doing well, no complaints, B+, rubella immune, breast and bottlefeeding - Discharge Diagnosis (1) Normal course Is this a current diagnosis for this admission?: Yes (2) Vaginal delivery Is this a current diagnosis for this admission?: Yes (3) Anemia Is this a current diagnosis for this admission?: Yes - Additional Information Resuscitation Status: Full Code Discharge Diet: As Tolerated, Regular Discharge Activity: Activity As Tolerated, No Lifting Over 10 Pounds, Pelvic Rest Prescriptions: Ibuprofen [Motrin 800 mg Tablet] 800 mg PO Q8 #60 tablet Home Medications: No.137/Iron/Folic Acd [ Vitamin Tablet] 1 tab PO DAILY 12/05/13 Ibuprofen [Motrin 800 mg Tablet] 800 mg PO Q8 #60 tablet 10/17/19 HPI Reason(s) for Admission: Onset of Labor Procedures: Ultrasound Intrapartum Procedure(s): Spontaneous Vaginal Delivery Complication(s): Laceration-Labial Laceration-Degree: 1st Hospital Course Hospital Course: routine Maternal Morbidity (serious complications experinced by the mother associated with labor and delivery: None of the above - n/a Results Laboratory Results: WBC 16.0 10^3/uL (4.0-10.5) H 10/16/19 07:10 RBC 3.59 10^6/uL (3.72-5.28) L 10/16/19 07:10 Hgb 11.4 g/dL (12.0-15.5) L 10/16/19 07:10 Hct 33.2 % (36.0-47.0) L 10/16/19 07:10 MCV 92 fl (80-97) 10/16/19 07:10 MCH 31.6 pg (27.0-33.4) 10/16/19 07:10 MCHC 34.2 g/dL (32.0-36.0) 10/16/19 07:10 RDW 14.6 % (11.5-14.0) H 10/16/19 07:10 Plt Count 192 10^3/uL (150-450) 10/16/19 07:10 Lymph % (Auto) Not Reportable 10/14/19 23:23 [place] % (Auto) Not Reportable 10/14/19 23:23 Eos % (Auto) Not Reportable 10/14/19 23:23 Baso % (Auto) Not Reportable 10/14/19 23:23 Absolute Neuts (auto) Not Reportable 10/14/19 23:23 Absolute Lymphs (auto) Not Reportable 10/14/19 23:23 Absolute Monos (auto) Not Reportable 10/14/19 23:23 Absolute Eos (auto) Not Reportable 10/14/19 23:23 Absolute Basos (auto) Not Reportable 10/14/19 23:23 Total Counted 100 10/14/19 23:23 Seg Neutrophils % Not Reportable 10/14/19 23:23 Seg Neuts % (Manual) 83 % (42-78) H 10/14/19 23:23 Lymphocytes % (Manual) 10 % (13-45) L 10/14/19 23:23 Monocytes % (Manual) 6 % (3-13) 10/14/19 23:23 Eosinophils % (Manual) 1 % (0-6) 10/14/19 23:23 Basophils % (Manual) 0 % (0-2) 10/14/19 23:23 Abs Neuts (Manual) 18.3 10^3/uL (1.7-8.2) H 10/14/19 23:23 Abs Lymphs (Manual) 2.2 10^3/uL (0.5-4.7) 10/14/19 23:23 Abs Monocytes (Manual) 1.3 10^3/uL (0.1-1.4) 10/14/19 23:23 Absolute Eos (Manual) 0.2 10^3/uL (0.0-0.6) 10/14/19 23:23 Abs Basophils (Manual) 0.0 10^3/uL (0.0-0.2) 10/14/19 23:23 Toxic Granulation 1+ 10/14/19 23:23 Platelet Comment ADEQUATE 10/14/19 23:23 Poikilocytosis SLIGHT 10/14/19 23:23 Anisocytosis SLIGHT 10/14/19 23:23 Ovalocytes SLIGHT 10/14/19 23:23 Urine Color YELLOW 10/14/19 22:13 Urine Appearance SLIGHTLY-CLOUDY 10/14/19 22:13 Urine pH 6.0 (5.0-9.0) 10/14/19 22:13 Ur Specific [place] 1.027 10/14/19 22:13 Urine Protein 30 mg/dL (NEGATIVE) H 10/14/19 22:13 Urine Glucose (UA) NEGATIVE mg/dL (NEGATIVE) 10/14/19 22:13 Urine Ketones NEGATIVE mg/dL (NEGATIVE) 10/14/19 22:13 Urine Blood NEGATIVE (NEGATIVE) 10/14/19 22:13 Urine Nitrite NEGATIVE (NEGATIVE) 10/14/19 22:13 Urine Bilirubin NEGATIVE (NEGATIVE) 10/14/19 22:13 Urine Urobilinogen 2.0 mg/dL (<2.0) H 10/14/19 22:13 Ur Leukocyte Esterase TRACE (NEGATIVE) H 10/14/19 22:13 Urine Ascorbic Acid NEGATIVE (NEGATIVE) 10/14/19 22:13 Membranes Rupture NEGATIVE (NEGATIVE) 10/14/19 23:03 Urine Opiates Screen NEGATIVE 10/14/19 22:13 Urine Methadone Screen NEGATIVE 10/14/19 22:13 Ur Barbiturates Screen NEGATIVE 10/14/19 22:13 Ur Phencyclidine Scrn NEGATIVE 10/14/19 22:13 Ur Amphetamines Screen NEGATIVE 10/14/19 22:13 U Benzodiazepines Scrn NEGATIVE 10/14/19 22:13 Urine Cocaine Screen NEGATIVE 10/14/19 22:13 U Marijuana (THC) Screen NEGATIVE 10/14/19 22:13 RPR NONREACTIVE (NONREACTIVE) 10/14/19 23:23 HSV I IgG Ab 4.22 index (0.00-0.90) H 10/15/19 16:44 HSV II Specific Ab 8.20 index (0.00-0.90) H 10/15/19 16:44 Blood Type B POSITIVE 10/14/19 23:23 Antibody Screen NEGATIVE 10/14/19 23:23 Plan Plan of Treatment: d/c home, f/up with [facility] in 4 wks for PP check Time Spent: Less than 30 Minutes
== END 2019-10-17 13:20 | disposition home or self-care (01) | DRG 807 ==
LOC: LC 22:04 → LR 23:06 → 2S 10-15 03:45
PROVIDERS: ADMIT Obstetrics & Gynecology; ATTEND Obstetrics & Gynecology
PROC: 10E0XZZ Delivery of Products of Conception, External Approach (ICD-10-PCS; principal; 2019-10-15)
PROC: 0HQ9XZZ Repair Perineum Skin, External Approach (ICD-10-PCS; 2019-10-15)
PROC: 3E0234Z Introduction of Serum, Toxoid and Vaccine into Muscle, Percutaneous Approach (ICD-10-PCS; 2019-10-17)
DX: O77.0 Labor and delivery complicated by meconium in amniotic fluid (principal); Z37.0 Single live birth; O76 Abnormality in fetal heart rate and rhythm complicating labor and delivery; Z3A.40 40 weeks gestation of pregnancy; O70.0 First degree perineal laceration during delivery; O99.02 Anemia complicating childbirth; D64.9 Anemia, unspecified; Z23 Encounter for immunization
CPT/HCPCS: 1967; 36415; 80307; 81005; 84112; 85025; 85027; 86592; 86695; 86696; 86850; 86900; 86901; 90715; C1758; J2590; J2795; J3010; J3490